=== PATIENT | female | born 1965 | race Two or more races ===

== ENCOUNTER 2022-06-29 14:19 | Emergency (ER) | payer BC, OTHER ==
[~2022-06-29] VITALS: Ht 157.5 cm; Wt 77.1 kg
--- NOTE | 2022-06-29 14:50 | NUR ---
Received pt 56 YRS MALE CAME FROM HOME C/O CHEST PAIN X 1 DAY NO SOB OR DISTRESS
--- NOTE | 2022-06-29 14:55 | NUR ---
SEEN by DR. BROUSSARD
--- NOTE | 2022-06-29 15:00 | NUR ---
BLOOD DROW BY lab tach
[2022-06-29 15:03] LABS: BASOPHILS # (AUTO) 0.1 K/uL (0.0-0.2); BASOPHILS % (AUTO) 0.7 % (0.0-2.0); EOSINOPHILS % (AUTO) 1.2 % (0.0-6.0); HEMATOCRIT 40 % (33-45); HEMOGLOBIN 12.6 g/dL (11.5-14.8); LYMPHOCYTES # (AUTO) 1.6 K/uL (0.8-4.8); LYMPHOCYTES % (AUTO) 18.7 % (20.0-44.0); MEAN CORPUSCULAR HGB CONC 32 g/dl (31.0-36.0); MEAN CORPUSCULAR VOLUME 77 fL (82-100); MONOCYTES # (AUTO) 0.6 K/uL (0.1-1.30); MONOCYTES % (AUTO) 6.6 % (2.0-12.0); NEUTROPHILS # (AUTO) 6.2 K/uL (1.8-8.9); NEUTROPHILS % (AUTO) 72.8 % (43.0-81.0); PLATELET COUNT (AUTO) 351 K/uL (150-450); RED BLOOD CELL COUNT(AUTO) 5.16 MIL/uL (4.0-5.2); WHITE BLOOD COUNT (AUTO) 8.5 K/uL (4.3-11.0)
[2022-06-29 15:26] LABS: CALCIUM, SERUM 8.7 mg/dL (8.5-10.1); CARBON DIOXIDE 25 mmol/L (21-32); CHLORIDE 105 mmol/L (98-107); CREATININE 0.8 mg/dL (0.6-1.3); GLUCOSE 105 mg/dL (74-106); POTASSIUM 3.4 mmol/L (3.5-5.1); SODIUM SERUM 139 mmol/L (136-145); UREA NITROGEN, BLOOD 17 mg/dL (7-18)
--- NOTE | 2022-06-29 17:29 | NUR ---
DINESES CHEST PAIN
--- NOTE | 2022-06-29 18:05 | NUR ---
AWAITING DIPOSITION OF PATIENT BY .
--- NOTE | 2022-06-29 19:05 | NUR ---
DINESES CHEST PAIN
--- NOTE | 2022-06-29 19:20 | NUR ---
HAND OFF JORGE ASHLEY
[2022-06-29] MEDS ORDERED: FAMO-131 PO (19:57)
[2022-06-29 20:09] VITALS: BP 147/73
--- NOTE | 2022-06-29 20:09 | NUR ---
Patient discharged to home in stable condition. Written and verbal after care instructions given. Patient verbalizes understanding of instruction.Pt ambulatory with a steady gait
== END 2022-06-29 20:10 | disposition home or self-care (01) ==
LOC: ER 14:35
DX: R07.89 Other chest pain (principal); F41.9 Anxiety disorder, unspecified; E78.5 Hyperlipidemia, unspecified; Z79.899 Other long term (current) drug therapy
CPT/HCPCS: 36415; 71045-TC; 80048-TC; 84484-TC; 85025-TC